=== PATIENT | female | born 1980 | race African-American/Black ===

== ENCOUNTER 2023-03-21 09:40 | Day surgery (SDC) | payer OTHER ==
[2023-03-14 10:40] VITALS: BMI 26.9
[2023-03-21] MEDS ORDERED: BUPIVACAINE HCL/PF 0.5% (5MG/ML) 10 ML VIAL ONE (11:57)
[2023-03-21] MEDS ORDERED: MIDAZOLAM HCL 2 MG/2 ML SINGLE DOSE VIAL ONE (11:58)
[2023-03-21] MEDS ORDERED: PROPOFOL 20 ML ONE ×6 (11:59→14:22)
[2023-03-21] MEDS ORDERED: IBUPROFEN 800 MG/8 ML IJ IVPB PRN (15:14)
[2023-03-21] MEDS ORDERED: oxyCODONE HCL 5 MG TABLET PO PRN (15:14)
[2023-03-21] MEDS ORDERED: ACETAMINOPHEN 1000 MG/100 ML BAG IVPB ONE (15:15)
[2023-03-21] MEDS ORDERED: LACTATED RINGERS SOLUTION 1,000 ML IV SCH (15:15)
[2023-03-21] MEDS ORDERED: PROMETHAZINE HCL 25 MG/1 ML VIAL IVPB PRN (15:25)
[2023-03-21] MEDS ORDERED: ONDANSETRON 4 MG/2 ML VIAL ONE (15:34)
[2023-03-21] MEDS ORDERED: FENTANYL CITRATE/PF 50 MCG/ML VIAL ONE (15:35)
[2023-03-21 16:47] VITALS: RESP 16; TEMP 97.2
[2023-03-21 18:26] VITALS: BP 110/68; PULSE 67
== END 2023-03-21 18:25 | disposition home or self-care (01) ==
LOC: FASU 09:40
PROVIDERS: ATTEND Orthopaedic Surgery Sports Medicine
PROC: 0SS Lower Joints, Reposition (ICD-10-PCS; 2023-03-21)
PROC: 0MQM4ZZ Repair Left Hip Bursa and Ligament, Percutaneous Endoscopic Approach (ICD-10-PCS; principal; 2023-03-21 12:51)
DX: S73.192A Other sprain of left hip, initial encounter (principal); M24.152 Other articular cartilage disorders, left hip; X58.XXXA Exposure to other specified factors, initial encounter; Y93.9 Activity, unspecified; Y92.9 Unspecified place or not applicable
CPT/HCPCS: 73502-TC-LT-FY; 84703; 94760